=== PATIENT | female | born 1985 | race Caucasian/White ===

== ENCOUNTER 2016-11-01 12:54 | Emergency (ER) | payer OTHER ==
[~2016-11-01] VITALS: Ht 165.1 cm; Wt 52.3 kg
[~2016-11-01 12:54] MED LIST: [UNRECOGNIZED DRUG - REMARK] PO
[2016-11-01] MEDS ORDERED: DOLU10TA PO (13:22)
[2016-11-01] MEDS ORDERED: EMTR1TAB13 PO (13:22)
[2016-11-01] MEDS ORDERED: HYDROCODONE/ACETAMINOPHEN 5-325 MG TABLET PO ONE (14:00)
[2016-11-01 16:43] VITALS: BP 118/67
== END 2016-11-01 17:00 | disposition home or self-care (01) ==
LOC: EMS 12:55
DX: S93.402A Sprain of unspecified ligament of left ankle, initial encounter (principal); F17.210 Nicotine dependence, cigarettes, uncomplicated; Z88.0 Allergy status to penicillin; Z88.6 Allergy status to analgesic agent; Z88.8 Allergy status to other drugs, medicaments and biological substances; W01.0XXA Fall on same level from slipping, tripping and stumbling without subsequent striking against object, initial encounter; Y93.01 Activity, walking, marching and hiking; Y92.89 Other specified places as the place of occurrence of the external cause; Y99.8 Other external cause status
CPT/HCPCS: 29515; 99284

== ENCOUNTER 2017-11-18 11:31 | Emergency (ER) | payer OTHER ==
[~2017-11-18] VITALS: Ht 165.1 cm; Wt 68.2 kg
[~2017-11-18 11:31] MED LIST changes: +DOLU10TA PO; +EMTR1TAB13 PO; -[UNRECOGNIZED DRUG - REMARK] PO
[2017-11-18] MEDS ORDERED: TraMADol HCL 50 MG TABLET PO ONE (14:15)
[2017-11-18 16:00] VITALS: BP 110/64
== END 2017-11-18 16:08 | disposition home or self-care (01) ==
LOC: EMS 11:32
DX: S63.591A Other specified sprain of right wrist, initial encounter (principal); F17.210 Nicotine dependence, cigarettes, uncomplicated; Z88.0 Allergy status to penicillin; Z88.8 Allergy status to other drugs, medicaments and biological substances; Z79.899 Other long term (current) drug therapy; Z98.51 Tubal ligation status; Z90.710 Acquired absence of both cervix and uterus; Z98.890 Other specified postprocedural states; W01.0XXA Fall on same level from slipping, tripping and stumbling without subsequent striking against object, initial encounter; Y93.89 Activity, other specified; Y92.89 Other specified places as the place of occurrence of the external cause; Y99.8 Other external cause status
CPT/HCPCS: 99284